=== PATIENT | male | born 1985 | race Two or more races ===

== ENCOUNTER 2016-10-19 00:29 | Emergency (ER) | payer SELFPAY ==
[~2016-10-19] VITALS: Ht 172.7 cm; Wt 79.8 kg
[2016-10-19] MEDS ORDERED: PERCOCET 5/31 TABLET PO (01:41)
[2016-10-19] MEDS ORDERED: BACTRIM,SEPT1 TABLET PO (01:41)
[2016-10-19 02:01] VITALS: BP 128/78
== END 2016-10-19 02:03 | disposition home or self-care (01) ==
LOC: EME 00:29
PROC: 0H98XZZ Drainage of Buttock Skin, External Approach (ICD-10-PCS; principal; 2016-10-19)
DX: L02.31 Cutaneous abscess of buttock (principal)
CPT/HCPCS: 99281; 99283